=== PATIENT | male | born 1955 | race Caucasian/White ===

== ENCOUNTER 2017-08-11 08:30 | Day surgery (SDC) | payer BC ==
[2017-08-04 15:42] VITALS: BMI 35.9
[~2017-08-11 08:30] MED LIST: LACTATED RINGERS 1,000 ML IV SCH; MOXIFLOXACIN HCL 0.5% DROPS 3 ML BTL OP ONE; TETRACAINE 0.5% OPHTH (PF) DROPS 4 ML BTL OP ONE; TIMOLOL 0.5% OPHTH DROPS 5 ML BTL OP ONE
[2017-08-11] MEDS: CYCLOPENTOLATE 1% OPHTH SOLN 2 ML BTL OP ONE ×3 (09:20→09:40)
[2017-08-11] MEDS: PHENYLEPHRINE 2.5% OPHTH DRP 2ML OP NR ×3 (09:25→09:43)
[2017-08-11 09:32] VITALS: RESP 16; TEMP 97.7
[2017-08-11] MEDS ORDERED: LIDOCAINE 1% 20 ML VIAL (10MG/ML) FOR IV START INTRADERMA ONE (09:33)
[2017-08-11] MEDS ORDERED: BALANCED SALT IRRIG SOLN COMB2 15 ML IRRIG.SOLN INTRAOCULA ONE (10:43)
[2017-08-11] MEDS ORDERED: HYALURONATE SODIUM INTRAOCULAR 1 EACH SYRINGE (12MG/ML) INTRAOCULA ONE (10:43)
[2017-08-11] MEDS ORDERED: LIDOCAINE 1% (PF) 10MG/ML VIAL SQ ONE (10:44)
[2017-08-11] MEDS ORDERED: fentaNYL (PF) 50 MCG/ML 2 ML AMP ONE (10:49)
[2017-08-11] MEDS ORDERED: MIDAZOLAM 2 MG/2 ML VIAL ONE (10:49)
[2017-08-11] MEDS ORDERED: EPINEPHrine (PF) 0.3 ML in BALANCED SALT IRRIG SOLN COMB2 500 ML IRRIGATION ONE (10:51)
[2017-08-11] MEDS ORDERED: TRYPAN BLUE 0.06% SYRINGE 0.5 ML SYRINGE INTRAOCULA ONE (11:02)
--- NOTE | 2017-08-11 11:23 | P.OP ---
Date of Procedure: 08/11/17 Preoperative Diagnosis: Mature cataract Postoperative Diagnosis: same Procedure(s) Performed: PIOL, OD Implants: PCB00 23.00 Anesthesia: MAC Surgeon: Gunnar Heredia Estimated Blood Loss (ml): 0 Pathology: none sent Condition: stable Disposition: same day Indications for Procedure: blurry vision Operative Findings: No complications
[2017-08-11] MEDS ORDERED: hydrALAZINE HCL 20 MG/ML 1 ML VIAL IV ONE (12:21)
[2017-08-11 12:51] VITALS: BP 157/89; PULSE 61
--- NOTE | 2017-08-12 00:02 | OP ---
OPERATIVE REPORT DATE OF SURGERY: August 11, 2017. PROCEDURE PERFORMED: Phacoemulsification of cataract and intraocular lens implant of the right eye. PREOPERATIVE DIAGNOSIS: Mature cataract of the right eye. POSTOPERATIVE DIAGNOSIS: Mature cataract of the right eye. SURGEONS: Dr. Gunnar Heredia. ANESTHESIA: Topical. ESTIMATED BLOOD LOSS: None. SPECIMEN: Taken none. NARRATIVE: After obtaining the appropriate consent, the patient was brought to the operating room. There he was placed on cardiac monitoring, prepped and draped in the usual sterile manner. He was approached from his right temporal side and at the 11 o'clock position a 1.1 mm stab blade was used to create a paracentesis port. Through this opening, 1% Xylocaine MPF 50 50 mix of balanced salt solution was injected into the anterior chamber. Following this, a small air bubble was then placed in the anterior chamber as well followed by Trypan blue which was placed on the cataract tissue and left in place for 3 minutes. When the time was up, the solution was then irrigated from the anterior chamber and Viscoat was then used to stabilize the anterior chamber. At the 9 o'clock position a 2.5 mm keratome was used to create a self-sealing corneal flap incision in a Langerman's fashion. Through this opening a cystotome was introduced to begin a continuous tear capsulorrhexis which was very carefully completed using the Utrata forceps. A fair amount of lens milk was encountered during the course of the procedure and required additional viscoelastic to clear the view. Following completion of the rhexis, balanced salt solution was then used to hydrodissect the lens from the posterior capsule. This did not require much difficulty and there was no point in trying to hydro delineate the lens with balanced salt solution. Phacoemulsification lens on the nucleus was accomplished in 21.96 seconds at 13% power. This was followed by installation of additional Xylocaine MPF and removal of the remaining cortex under irrigation aspiration. Provisc was then used to stabilize the capsular bag and an GUSTAVO PCB 00 23.0 diopter posterior chamber intraocular lens was then inserted into the capsular bag without difficulty. The remaining viscoelastic was removed from in and around the intra-ocular lens as well as the anterior chamber. The eye was brought to normal intraocular pressure through the paracentesis port and the incisions were confirmed watertight. He then received 2 drops of 0.5% timolol followed by 2 drops of moxifloxacin was then lightly patched and shielded in the usual manner. There were no complications from the procedure. He tolerated the procedure well and was returned to outpatient recovery in good condition. NICKIE / IRA: [id number] /
== END 2017-08-11 12:51 | disposition home or self-care (01) ==
LOC: OR 08:30 → EDSEX 12:20 → OR 12:51
PROVIDERS: ATTEND Ophthalmology
DX: H25.9 Unspecified age-related cataract (principal); H00.026 Hordeolum internum left eye, unspecified eyelid; H00.023 Hordeolum internum right eye, unspecified eyelid; M35.01 Sjogren syndrome with keratoconjunctivitis; H52.03 Hypermetropia, bilateral; H52.4 Presbyopia; H52.223 Regular astigmatism, bilateral; I10 Essential (primary) hypertension; E78.00 Pure hypercholesterolemia, unspecified; N40.0 Benign prostatic hyperplasia without lower urinary tract symptoms; M19.90 Unspecified osteoarthritis, unspecified site; R53.1 Weakness; Z86.73 Personal history of transient ischemic attack (TIA), and cerebral infarction without residual deficits; Z98.1 Arthrodesis status; Z79.1 Long term (current) use of non-steroidal anti-inflammatories (NSAID); Z79.82 Long term (current) use of aspirin; Z79.891 Long term (current) use of opiate analgesic; Z79.899 Other long term (current) drug therapy
CPT/HCPCS: 66984; C1780; J2250; J0360; J0171; J3010; J2001

== ENCOUNTER 2017-09-22 10:17 | Day surgery (SDC) | payer BC ==
[2017-09-16 11:28] VITALS: BMI 35.9
[~2017-09-22 10:17] MED LIST changes: +DEXAMETHASONE SOD PHOSPHATE 10 MG/ML 1 ML VIAL IV ONE; +LIDOCAINE 1% 20 ML VIAL (10MG/ML) FOR IV START INTRADERMA PRN
[2017-09-22 11:51] VITALS: TEMP 98
[2017-09-22] MEDS: PHENYLEPHRINE 2.5% OPHTH DRP 2ML OP NR ×3 (11:55→12:15)
[2017-09-22] MEDS: CYCLOPENTOLATE 1% OPHTH SOLN 2 ML BTL OP ONE ×2 (12:00→12:20)
[2017-09-22] MEDS ORDERED: BALANCED SALT IRRIG SOLN COMB2 15 ML IRRIG.SOLN IRRIGATION ONE (12:50)
[2017-09-22] MEDS ORDERED: DUOVISC KIT (GREEN BOX) INTRAOCULA ONE (12:50)
[2017-09-22] MEDS ORDERED: LIDOCAINE 1% (PF) 10MG/ML VIAL SQ ONE (12:50)
[2017-09-22] MEDS ORDERED: LABETALOL 5 MG/ML VIAL MDV ONE (12:52)
[2017-09-22] MEDS ORDERED: fentaNYL (PF) 50 MCG/ML 2 ML AMP ONE (12:52)
[2017-09-22] MEDS ORDERED: EPINEPHrine (PF) 0.3 ML in BALANCED SALT IRRIG SOLN COMB2 500 ML IRRIGATION ONE (12:52)
[2017-09-22] MEDS ORDERED: MIDAZOLAM 2 MG/2 ML VIAL ONE (12:52)
--- NOTE | 2017-09-22 13:19 | P.OP ---
Date of Procedure: 09/22/17 Preoperative Diagnosis: NS & CS Postoperative Diagnosis: same Procedure(s) Performed: PIOL, OS Implants: PCB00 21.50 Anesthesia: MAC Surgeon: Gunnar Heredia Estimated Blood Loss (ml): 0 Pathology: none sent Condition: stable Disposition: no change Indications for Procedure: blurry vision Operative Findings: No complications
[2017-09-22 13:41] VITALS: RESP 16
[2017-09-22 13:50] VITALS: BP 155/80; PULSE 58
--- NOTE | 2017-09-22 22:04 | OP ---
OPERATIVE REPORT DATE OF SURGERY: 09/22/2017 PROCEDURE: Phacoemulsification of cataract and intraocular lens implant of the left eye. PREOPERATIVE DIAGNOSIS: Nuclear sclerosis, cortical sclerosis, left eye. POSTOPERATIVE DIAGNOSIS: Nuclear sclerosis, cortical sclerosis, left eye. ESTIMATED BLOOD LOSS:: Zero. SPECIMEN TAKEN:: None. NARRATIVE:: After obtaining the appropriate consent, the patient was brought to the operating room, where the patient was placed under cardiac monitoring and prepped and draped in the usual sterile manner. At 5 o'clock position a 15 degree super sharp blade was used to create a paracentesis followed by instillation of 1% Xylocaine MPF 50:50 mix with BSS into the anterior chamber. This was followed by Duovisc to stabilize the anterior chamber. At the 3 o'clock position a self-sealing corneal flap incision was created using 2.8 mm connie keratome. A cystotome was used to initiate a continuous tear capsulorrhexis which was completed with the Utrata forceps. A Binkhorst cannula was used to hydrodissect the lens nucleus followed by hydrodelineation. Phacoemulsification of the lens was performed utilizing phaco chop in 9.96 seconds at 8% power. The remaining cortical material was removed using the irrigation aspiration mode followed by additional 1% Xylocaine MPF into the anterior chamber followed by viscoelastic to stabilize the capsular bag. An [id number] 21.5 diopter posterior chamber lens was placed into the capsular bag without difficulty. The remaining viscoelastic material was removed from the anterior chamber with the irrigation/aspiration. Balanced salt solution was used to normalize the intraocular pressure. The incision was checked for watertight integrity. The patient then received two drops of 0.5% timolol followed by two drops Vigamox, was lightly patched and shielded in the usual manner. There were no complications from the procedure. The patient tolerated the procedure well and was returned to recovery in good condition. MMODL / IJN: [id number] /
== END 2017-09-22 14:01 | disposition home or self-care (01) ==
LOC: OR 10:17
PROVIDERS: ATTEND Ophthalmology
DX: H25.12 Age-related nuclear cataract, left eye (principal); H25.012 Cortical age-related cataract, left eye; H00.026 Hordeolum internum left eye, unspecified eyelid; H00.023 Hordeolum internum right eye, unspecified eyelid; M35.01 Sjogren syndrome with keratoconjunctivitis; H52.03 Hypermetropia, bilateral; H52.4 Presbyopia; H52.223 Regular astigmatism, bilateral; N40.0 Benign prostatic hyperplasia without lower urinary tract symptoms; M19.90 Unspecified osteoarthritis, unspecified site; G47.33 Obstructive sleep apnea (adult) (pediatric); Z96.1 Presence of intraocular lens; Z86.73 Personal history of transient ischemic attack (TIA), and cerebral infarction without residual deficits; Z79.1 Long term (current) use of non-steroidal anti-inflammatories (NSAID); Z79.82 Long term (current) use of aspirin; Z79.891 Long term (current) use of opiate analgesic; Z79.899 Other long term (current) drug therapy; Z72.0 Tobacco use
CPT/HCPCS: 66984; C1780; J2250; J0171; J3010; J2001